=== PATIENT | male | born 1945 | race Caucasian/White ===

== ENCOUNTER 2017-01-22 13:25 | Emergency (ER) | payer MEDICARE ==
[2017-01-22 14:46] VITALS: BP 176/90
== END 2017-01-22 14:46 | disposition other institution (70) ==
LOC: ED 13:25
DX: I10 Essential (primary) hypertension (principal); M54.2 Cervicalgia; G89.29 Other chronic pain; Z86.73 Personal history of transient ischemic attack (TIA), and cerebral infarction without residual deficits

== ENCOUNTER 2017-01-22 13:25 | Emergency (ER) | payer OTHER | END 2017-01-22 14:46 | disposition other institution (70) | LOC: ED 13:25 | DX: Z02.89 Encounter for other administrative examinations (principal) ==

== ENCOUNTER 2018-05-20 17:16 | Emergency (ER) | payer OTHER | END 2018-05-20 20:04 | disposition other institution (70) | LOC: ED 17:16 | DX: Z02.89 Encounter for other administrative examinations (principal) ==

== ENCOUNTER 2018-05-20 17:16 | Emergency (ER) | payer MEDICARE ==
[~2018-05-20] VITALS: Ht 162.6 cm; Wt 56.7 kg
[2018-05-20 17:25] VITALS: Ht 162.6 cm; Wt 56.7 kg
[2018-05-20 18:28] LABS: BASOPHIL % 1.2 % (0-2); PLATELET COUNT 353 x10^3mcL (130-400); RED CELL DISTRIBUTION WIDTH 13.8 % (11.5-14.5)
[2018-05-20 18:41] LABS: ALKALINE PHOSPHATASE 131 U/L (46-116); ALT/SGPT 20 U/L (16-63); AST/SGOT 16 U/L (15-37); BILIRUBIN TOTAL 0.4 mg/dL (0.20-1.00); CALCIUM 8.7 mg/dL (8.5-10.1); CARBON DIOXIDE 20.2 mmol/L (21-32); CHLORIDE SERUM 106 mmol/L (98-107); CREATININE SERUM 1.3 mg/dL (0.7-1.3); SODIUM SERUM 141 mmol/L (136-145); TOTAL PROTEIN, SERUM 6.9 g/dL (6.4-8.2)
[2018-05-20 18:46] LABS: ALBUMIN 3.3 g/dL (3.4-5.0); GLUCOSE SERUM 110 mg/dL (74-106)
[2018-05-20 18:47] LABS: POTASSIUM SERUM 2.9 mmol/L (3.5-5.1)
[2018-05-20 20:04] VITALS: BP 160/85
== END 2018-05-20 20:04 | disposition other institution (70) ==
LOC: ED 17:16
PROVIDERS: Emergency Medicine
DX: E87.6 Hypokalemia (principal); I10 Essential (primary) hypertension; E78.00 Pure hypercholesterolemia, unspecified; R06.4 Hyperventilation
CPT/HCPCS: 83880; J7030